=== PATIENT | male | born 1985 | race Caucasian/White ===

== ENCOUNTER 2018-10-08 12:26 | Emergency (ER) | payer OTHER ==
[2018-10-08 13:03] VITALS: BP 97/65
--- NOTE | 2018-10-08 14:05 | UC ---
UC General HPI - HPI Summary HPI Summary: Patient states he scratched his ear a while ago and now for the past few days he can't hear anything out of the ear. No URI symptoms. No fevers. Meds; reviewed. - History of Current Complaint Chief Complaint: UCEar Stated Complaint: EAR ACHE Time Seen by Provider: 10/08/18 13:46 Pain Intensity: 6 - Allergy/Home Medications Allergies/Adverse Reactions: Allergies Allergy/AdvReac Type Severity Reaction Status Date / Time No Known Allergies Allergy Verified 10/08/18 13:03 Home Medications: Home Medications NK [No Home Medications Reported] 10/08/18 [History Confirmed 10/08/18] PMH/Surg Hx/FS Hx/Imm Hx Previously Healthy: Yes - Surgical History Surgical History: None - Social History Alcohol Use: None Substance Use Type: None Smoking Status (MU): Never Smoked Tobacco Review of Systems All Other Systems Reviewed And Are Negative: Yes ENT: Positive: Other - hearing loss Physical Exam Triage Information Reviewed: Yes Appearance: Well-Appearing Vital Signs: Initial Vital Signs Temp 98 F 10/08/18 12:59 Pulse 63 10/08/18 12:59 Resp 16 10/08/18 12:59 BP 97/65 10/08/18 12:59 Pulse Ox 100 10/08/18 12:59 Vital Signs Reviewed: Yes ENT: Positive: Pharynx normal, Other - cerumen impaction on left Right TM: NOrmal Neck: Positive: Supple Course/Dx - Course Course Of Treatment: This is a 33 yr old with left ear cerumen impaction. Assessment. Able to get a significant amount removed with curette. Remaining cerumen irrigated: Canal and impaction unremarkable. Plan. Do not use q-tips. If symptoms persist or worsen, you can return to the ER for further evaluation - Diagnoses Provider Diagnosis: Impacted cerumen of left ear Discharge - Sign-Out/Discharge Documenting (check all that apply): Patient Departure All imaging exams completed and their final reports reviewed: No Studies - Discharge Plan Condition: Good Disposition: HOME Referrals: Melissa Correia MD [Primary Care Provider] - Additional Instructions: Do not use q-tips If symptoms persist or worsen, you can return to the ER for further evaluation - Billing Disposition and Condition Condition: GOOD Disposition: Home
== END 2018-10-08 14:26 | disposition home or self-care (01) ==
LOC: UCEAST 12:26
DX: H61.22 Impacted cerumen, left ear (principal)
CPT/HCPCS: 69210; 99212; G0463

== ENCOUNTER 2018-10-14 20:59 | Emergency (ER) | payer OTHER ==
--- OUTSIDE RECORDS SUMMARY | 2018-10-14 21:45 | XMS REPORT | Continuity of Care Document ---
:1985 External Reference #:[id number] Author Name Gemma Tejada Care Team Providers Name Role Phone Maury Santana III, MD Primary Care Physician Unavailable Payers Date Identification Numbers Payment Provider Subscriber Policy Number: [id number] Pavan Graham Group Number: [id number] [address] PayID: [id number] [place] [address] Advance Directives Type Date Description Status Comment Other Directive 01/21/2018 Health Care Proxy Current and Verified Problems Date Description Provider Status Onset: 06/04/2016 Irritable bowel syndrome Jonas Peña M.D.,FACP Active Note: w/ diarrhea Onset: 06/04/2016 Anxiety Jonas Peña M.D.,FACP Active Family History Date Family Member(s) Observation Comments Father Alive And Well Mother IBS Mother Add Siblings 1 First Sister 35 Social History Type Date Description Comments Sex Unknown Marital Status Lives With Mother Occupation Unemployed counselor Tobacco Use Start: Unknown Never Smoked Cigarettes Smoking Status Reviewed: 10/14/18 Never Smoked Cigarettes ETOH Use 06/04/2016 Denies alcohol use Tobacco Use Start: Unknown Patient has never smoked Recreational Drug Use Denies Drug Use Currently Active Patient is currently not sexually active Allergies, Adverse Reactions, Alerts Description No Known Drug Allergies Medications Medication Date Status Form Strength Qnty SIG Indications Ordering Provider No Active Active Unknown Medications 018 Sulfamethoxazol Hx Tablets 800-160mg 28tabs take 1 K58.0 [place] e/Trimethoprim 018 - tab by ALBERTO Fenton mouth M.D. 018 twice daily for 14 days. No Active Hx Jonas Medications Amando - Terry Peña, Jennifer,FACP 018 Medications Administered in Office Medication Date Status Form Strength Qnty SIG Indications Ordering Provider PPD Administered Injection Jonas Peña M.D.,FACP Influenza,Unsp Administered Injection Unknown ecified 014 Immunizations CPT Code Status Date Vaccine Lot # [id number] Given 06/07/2014 Hepatitis B Vaccine Adult Dosage [id number] Given 01/05/2014 Hepatitis B Vaccine Adult Dosage [id number] Given 12/02/2013 Hepatitis B Vaccine Adult Dosage 04191 Given 07/16/2011 Tdap - Tetanus/Diptheria/Acellular Pertussis 26759 Given 03/19/2006 Measles Mumps And Rubella MMR [id number] Given 01/27/1988 Measles Mumps And Rubella MMR Vital Signs Date Vital Result Comment 10/14/2018 4:20pm Height 69.75 inches 5'9.75" Weight 134.00 lb Heart Rate 55 /min BP Systolic Sitting 98 mmHg BP Diastolic Sitting 65 mmHg O2 % BldC Oximetry 97 % BMI (Body Mass Index) 19.4 kg/m2 04/16/2018 3:36pm Height 69.75 inches 5'9.75" Weight 132.00 lb Heart Rate 65 /min BP Systolic 110 mmHg BP Diastolic 60 mmHg O2 % BldC Oximetry 98 % BMI (Body Mass Index) 19.1 kg/m2 03/17/2018 1:48pm Height 69.75 inches 5'9.75" Weight 130.38 lb Heart Rate 52 /min BP Systolic 100 mmHg BP Diastolic 60 mmHg O2 % BldC Oximetry 99 % BMI (Body Mass Index) 18.8 kg/m2 02/24/2018 10:14am Height 69.75 inches 5'9.75" Weight 127.00 lb Heart Rate 59 /min BP Systolic 110 mmHg BP Diastolic 60 mmHg O2 % BldC Oximetry 99 % BMI (Body Mass Index) 18.4 kg/m2 01/21/2018 4:10pm Height 69.75 inches 5'9.75" Weight 128.00 lb Heart Rate 67 /min BP Systolic Sitting 104 mmHg BP Diastolic Sitting 60 mmHg Body Temperature 98.5 F O2 % BldC Oximetry 98 % BMI (Body Mass Index) 18.5 kg/m2 03/08/2017 2:23pm Weight 129.00 lb Heart Rate 54 /min BP Systolic Sitting 118 mmHg BP Diastolic Sitting 62 mmHg Body Temperature 98.3 F O2 % BldC Oximetry 98 % 09/19/2016 9:04am Height 70 inches 5'10" Weight 132.00 lb Heart Rate 52 /min BP Systolic Sitting 110 mmHg BP Diastolic Sitting 60 mmHg Respiratory Rate 16 /min O2 % BldC Oximetry 99 % BMI (Body Mass Index) 18.9 kg/m2 06/04/2016 2:46pm Height 70 inches 5'10" Weight 133.00 lb Heart Rate 54 /min BP Systolic Sitting 94 mmHg BP Diastolic Sitting 60 mmHg Body Temperature 98.2 F O2 % BldC Oximetry 99 % BMI (Body Mass Index) 19.1 kg/m2 Results Test Date Facility Test Result H/L Range Note Order 10/14/2018 [facility] In-House Ear Irrigation somewhat successful Lipid Profile 08/31/2016 [facility] Triglycerides 51 mg/dL N 1 (Trig/Chol/HDL [address] ) [place] [address] [phone] Cholesterol 136 mg/dL N 2 HDL Cholesterol 69.1 mg/dL N 3 LDL Cholesterol 57 mg/dL N 4 Laboratory test finding 08/31/2016 [facility] Glucose 84 mg/dL N 70-[address] [place] [address] [phone] Desirable <150 Borderline high 150-199 High 200-499 Very High >500 2 Desirable <200 Borderline high 200-239 High >239 3 Low <40 Desirable: 40-60 High: >60 4 Desirable: <100 mg/dL Near Optimal: 100-129 mg/dL Borderline High: 130-159 mg/dL High: 160-189 mg/dL Very High: >189 mg/dL 5 FASTING 10 HOUR Procedures Description No Information Available Encounters Type Date Location Provider Dx Diagnosis Office Visit 04/16/2018 [facility] Internal Jonas Stewart H62.42 Otitis externa in 3:20p Medicine - Tbcorazon Peña M.D.,FACP oth diseases Rd classd elswhr, left ear K58.0 Irritable bowel syndrome with diarrhea H61.22 Impacted cerumen, left ear Office Visit 03/17/2018 1:40p [facility] [place] R19.7 Diarrhea, Medicine - [place] Marker, RPA-C unspecified Rd R15.9 Full incontinence of feces Office Visit 02/24/2018 10:00a [facility] Internal Ana Maria Marker, K58.0 Irritable bowel Medicine - [place] RPA-C syndrome with Rd diarrhea R19.7 Diarrhea, unspecified R15.9 Full incontinence of feces Office Visit 01/21/2018 4:20p [facility] Internal Jonas Stewart Z00.01 Encounter for Shamika Peña M.D.,FACP general adult [place] medical exam w abnormal findings K58.0 Irritable bowel syndrome with diarrhea Office Visit 03/08/2017 2:40p [facility] Internal Jonas Stewart K58.0 Irritable bowel Medicine - Tbcorazon Peña M.D.,FACP syndrome with Rd diarrhea Z11.1 Encounter for screening for respiratory tuberculosis Office Visit 09/19/2016 9:10a [facility] Internal Jonas Stewart Z00.01 Encounter for Shamika Peña M.D.,[facility] general adult urg Rd medical exam w abnormal findings K58.0 Irritable bowel syndrome with diarrhea F41.1 Generalized anxiety disorder D48.5 Neoplasm of uncertain behavior of skin Office Visit 06/04/2016 3:00p [facility] Internal Jonas Stewart K58.0 Irritable bowel Medicine - Tbcorazon Peña M.D.,FACP syndrome with Rd diarrhea F41.1 Generalized anxiety disorder M54.41 Lumbago with sciatica, right side Plan of Treatment 10/14/2018 - Maury Santana M.D.H61.22 Impacted cerumen, left earComments:L ear clear at present.H61.21 Impacted cerumen, right earComments:Increased cerumen on the R now; ear lavage done with some clearing, but stopped due to ear discomfort with the lavage. Some non-obstructing cerumen remaining. Home ear lavage suggested every 4 monthsto keep ears clear.K58.0 Irritable bowel syndrome with diarrheaComments:Follows with GI; still with frequent stools, fecal incontinence.
[2018-10-14] MEDS ORDERED: Ciproflox/Dexameth OTIC.SUSP* 7.5 ML BTL RIGHT EAR ONE (22:25)
--- NOTE | 2018-10-14 22:25 | ED ---
Throat Pain/Nasal Congestion - HPI Summary HPI Summary: 33-year-old male presents with right ear pain. He states today he had his right ear irrigated. He said that he felt like a pressure in his ear. He admits to decreased hearing. He states his pain has been increasing. Denies any headache. No sinus congestion. Have a history of cerumen impactions but no history of ear infections. Has never had this before. - History of Current Complaint Chief Complaint: EDEarPain Time Seen by Provider: 10/14/18 21:47 - Allergies/Home Medications Allergies/Adverse Reactions: Allergies Allergy/AdvReac Type Severity Reaction Status Date / Time No Known Allergies Allergy Verified 10/14/18 21:25 PMH/Surg Hx/FS Hx/Imm Hx Endocrine/Hematology History: Denies: Hx Anticoagulant Therapy Respiratory History: Denies: Hx Asthma Infectious Disease History: No Infectious Disease History: Denies: Traveled Outside the [place] in Last 30 Days - Family History Known Family History: Positive: Non-Contributory - Social History Alcohol Use: None Substance Use Type: Reports: None Smoking Status (MU): Never Smoked Tobacco Review of Systems Negative: Fever Positive: Ear Ache Negative: Chest Pain Negative: Shortness Of Breath All Other Systems Reviewed And Are Negative: Yes Physical Exam Triage Information Reviewed: Yes Vital Signs On Initial Exam: Initial Vitals Temp Pulse Resp BP Pulse Ox 98.2 F 62 16 155/69 97 10/14/18 21:20 10/14/18 21:20 10/14/18 21:20 10/14/18 21:20 10/14/18 21:20 Vital Signs Reviewed: Yes Appearance: Positive: Well-Appearing Skin: Positive: Warm, Dry Head/Face: Positive: Normal Head/Face Inspection Eyes: Positive: Normal, EOMI, MERNA, Conjunctiva Clear ENT: Positive: Pharynx normal, TMs normal, Other - wax present in right ear removed with ear scoop, some edema and mild erthyema to right ear canal, no TM rupture Respiratory/Lung Sounds: Positive: Clear to Auscultation, Breath Sounds Present Cardiovascular: Positive: Normal, RRR Musculoskeletal: Positive: Normal Neurological: Positive: Normal Psychiatric: Positive: Normal Diagnostics - Vital Signs Vital Signs Temp Pulse Resp BP Pulse Ox 10/14/18 21:20 98.2 F 62 16 155/69 97 - Laboratory Lab Statement: Any lab studies that have been ordered have been reviewed, and results considered in the medical decision making process. EENT Course/Dx - Course Course Of Treatment: 33-year-old male presents with right ear pain. He states today he had his right ear irrigated. He said that he felt like a pressure in his ear. He admits to decreased hearing. He states his pain has been increasing. Denies any headache. No sinus congestion. Have a history of cerumen impactions but no history of ear infections. Has never had this before. On exam some wax noted in canal removed with scoop. caused a small abrasion to the area with using peoplesoft programmer. TMs are normal. The canal is a little better erythematous and edematous. Likely developing otitis externa. We 'll treat with Ciprodex. Patient understands and agrees the plan. - Differential Diagnoses Differential Diagnoses: Otitis Externa, Otitis Media, Perforated TM - Diagnoses Provider Diagnoses: Otitis externa Discharge - Sign-Out/Discharge Documenting (check all that apply): Patient Departure Patient Received Moderate/Deep Sedation with Procedure: No - Discharge Plan Condition: Good Disposition: HOME Patient Education Materials: Otitis Externa (ED) Referrals: Maury Santana MD [Primary Care Provider] - Additional Instructions: Use 4 drops twice a day for 7 days Take Tylenol or ibuprofen for pain every 6 hours as needed Return to ED if develop any new or worsening symptoms - Billing Disposition and Condition Condition: GOOD Disposition: Home
[2018-10-14 22:45] VITALS: BP 108/65
== END 2018-10-14 22:43 | disposition home or self-care (01) ==
LOC: ED 20:59
DX: H60.91 Unspecified otitis externa, right ear (principal)
CPT/HCPCS: 99282; A9270-GY